=== PATIENT | female | born 1940 | race Caucasian/White ===

== ENCOUNTER 2016-08-19 19:40 | Emergency (ER) | payer MEDICARE, OTHER ==
[~2016-08-19] VITALS: Ht 154.9 cm; Wt 90.9 kg
[2016-08-19 19:45] VITALS: TEMP 98.5
[2016-08-19 21:40] VITALS: BP 120/63; PULSE 69
== END 2016-08-19 21:35 | disposition home or self-care (01) ==
LOC: COL.ER 19:40
DX: K56.41 Fecal impaction (principal)

== ENCOUNTER → 2018-06-01 | Outpatient (CLI) | payer MEDICARE, OTHER ==
[~2018-06-01] MED LIST: ABILIFY2 MG PO; ALAWAY 10 ML10 ML OP; ALLEGRA 180MG180 MG PO; ALMACONE 360 M360 ML PO; AMARYL4 MG PO; ASPIRIN 81M81 MG/TA2 PO; AVENOVA OU; BIOFREEZE 0.2%-1 GE1 TOP; BRINTELLIX20; CARDIZEM CD 24240 MG PO; COZAAR 50MG50 MG/TAB PO; COZAAR100 MG PO; DEBROX OT; DESENEX21 TP; DULCOLAX S10 MG/SUPP RC; GOOD NEIGH1200 MG/15; IMODIUM 2MG CAPS2 MG PO; IMODIUM A-D2 MG PO; IPRATROPIUM BROM3 M1 IH; K-DUR20 MEQ PO; LANTUS100 U/ML SQ; LASIX 20MG TABL20 MG PO; LIPITOR20 MG PO; MIRALAX PA17 GM/Dose PO; MYRBETR25MG PO; MYRBETR50MG PO; NAMENDA 10MG TA10 MG PO; NEURONTIN300 MG/CAP PO; NOVOLIN 70/30 710 ML SQ; NOVOLOG 100U100 U/M1 SQ; REQUIP0.25 MG PO; ROCEPHIN VIA1 G/VIAL IV; SINGULAIR 110 MG/TAB PO; TOVIAZ8 MG PO; TYLENOL 325MG325 MG PO; TYLENOL SU650 MG/SUP RC; VICTOZA6 MG/ML SQ; ZANTAC 300300 MG PO; ZOFRAN 4MG T4 MG/TAB PO
[2018-06-01 15:22] LABS: BASO # 0.1 (0.0-0.2); BASO % 0.8 % (0.0-2.0); EOS # 0.2 (0.0-0.7); EOS % 2.5 % (0-4.0); GRAN # 5.1 (1.4-6.5); GRAN % 66.7 % (42.2-75.2); HEMATOCRIT 44.7 % (37.0-47.0); LYMPH # 1.6 (1.2-3.4); LYMPH % 20.7 % (20.0-51.0); MEAN CELL VOLUME 99 fl (80.0-100.0); MEAN CORPUSCULAR HEMOGLOBIN 31 pg (27.0-31.0); MEAN CORPUSCULAR HGB CONC 31 g/dl (33.0-37.0); MEAN PLATELET VOLUME 12.4 fl (7.4-10.4); MONO # 0.7 (0.1-0.6); PLATELET COUNT 182 K/mm3 (130-400); RED BLOOD COUNT 4.52 M/mm3 (4.10-5.30); REDCELL DISTRIBUTION WIDTH-CV 12.9 % (11.5-14.5)
== END ==
LOC: ZCOL.LAB 15:05
PROVIDERS: Family Medicine
DX: A49.8 Other bacterial infections of unspecified site (principal); N39.0 Urinary tract infection, site not specified

== ENCOUNTER → 2018-10-03 | Outpatient (CLI) | payer MEDICARE, OTHER, MEDICAID ==
[2018-10-03 07:59] LABS: COLLECTION METHOD CATHETER
[2018-10-03 08:08] LABS: PH 7 (5-8); SQUAMOUS EPITHELIAL 0-2 /hpf; URINE APPEARANCE Hazy; URINE BACTERIA Rare /hpf; URINE BILIRUBIN Negative (NEGATIVE); URINE BLOOD Negative (NEGATIVE); URINE COLOR Yellow; URINE GLUCOSE Negative (NEGATIVE); URINE KETONE Negative (NEGATIVE); URINE LEUKOCYTE ESTERASE Negative (NEGATIVE); URINE NITRATE Positive (NEGATIVE); URINE PROTEIN(semi-quant) Negative (NEGATIVE); URINE RBC 0-2 /hpf; URINE UROBILINOGEN Negative (NEGATIVE)
== END ==
LOC: ZCOL.LAB 07:57
PROVIDERS: Family Medicine
DX: N39.0 Urinary tract infection, site not specified (principal)

== ENCOUNTER → 2019-06-17 | Outpatient (CLI) | payer MEDICARE, OTHER, MEDICAID | LOC: COL.VAS 12:23 | DX: R09.02 Hypoxemia (principal) ==

== ENCOUNTER → 2020-06-26 | Outpatient (CLI) | payer MEDICARE, OTHER, MEDICAID ==
[2020-06-26 20:47] LABS: COLLECTION METHOD CATHETER
[2020-06-26 21:02] LABS: BUDDING YEAST Present /hpf; MUCOUS Present /lpf; PH 5 (5-8); SQUAMOUS EPITHELIAL 0-2 /hpf; URINE APPEARANCE Hazy; URINE BACTERIA Occasional /hpf; URINE BILIRUBIN Negative (NEGATIVE); URINE BLOOD Negative (NEGATIVE); URINE COLOR Yellow; URINE GLUCOSE Negative (NEGATIVE); URINE KETONE Negative (NEGATIVE); URINE LEUKOCYTE ESTERASE 2+ (NEGATIVE); URINE NITRATE Negative (NEGATIVE); URINE PROTEIN(semi-quant) 1+ (NEGATIVE); URINE UROBILINOGEN Negative (NEGATIVE)
== END ==
LOC: ZCOL.LAB 20:39
PROVIDERS: Internal Medicine
DX: N39.0 Urinary tract infection, site not specified (principal)

== ENCOUNTER → 2020-12-11 | Outpatient (CLI) | payer MEDICARE, OTHER, MEDICAID ==
[2020-12-11 17:37] LABS: BASO # 0.1 (0.0-0.2); BASO % 0.6 % (0.0-2.0); EOS # 0.1 (0.0-0.7); EOS % 1.3 % (0-4.0); GRAN # 7.8 (1.4-6.5); HEMATOCRIT 42.9 % (37.0-47.0); HEMOGLOBIN 12.5 g/dl (12.5-16.0); LYMPH # 1.6 (1.2-3.4); MEAN CELL VOLUME 108 fl (80.0-100.0); MEAN CORPUSCULAR HEMOGLOBIN 31 pg (27.0-31.0); MEAN CORPUSCULAR HGB CONC 29 g/dl (33.0-37.0); MEAN PLATELET VOLUME 11.5 fl (7.4-10.4); MONO # 0.9 (0.1-0.6); MONO % 8.6 % (1.7-9.3); PLATELET COUNT 180 K/mm3 (130-400); RED BLOOD COUNT 3.98 M/mm3 (4.10-5.30); REDCELL DISTRIBUTION WIDTH-CV 12.7 % (11.5-14.5)
[2020-12-11 17:45] LABS: ALBUMIN 3.4 gm/dL (3.5-5.0); BILIRUBIN,TOTAL 0.3 mg/dL (0.0-1.0); CALCIUM 9.3 mg/dL (8.4-10.2); CREATININE, serum 0.74 (0.52-1.25); POTASSIUM 5.1 mmol/L (3.4-5.0); TOTAL PROTEIN 6.2 gm/dL (6.4-8.2)
== END ==
LOC: ZCOL.LAB 13:25
PROVIDERS: Internal Medicine
DX: R41.82 Altered mental status, unspecified (principal); E03.9 Hypothyroidism, unspecified

== ENCOUNTER → 2021-01-06 | Outpatient (REF) | LOC: ZCOL.LAB 10:04 | DX: E11.69 Type 2 diabetes mellitus with other specified complication (principal) ==

== ENCOUNTER → 2021-03-05 | Outpatient (CLI) | payer MEDICARE, OTHER, MEDICAID ==
[2021-03-05 18:19] LABS: BASO % 0.4 % (0.0-2.0); EOS # 0.1 (0.0-0.7); EOS % 1.6 % (0-4.0); GRAN # 5.9 (1.4-6.5); GRAN % 71.5 % (42.2-75.2); HEMOGLOBIN 10.4 g/dl (12.5-16.0); LYMPH # 1.2 (1.2-3.4); LYMPH % 14.6 % (20.0-51.0); MEAN CELL VOLUME 110 fl (80.0-100.0); MEAN CORPUSCULAR HEMOGLOBIN 31 pg (27.0-31.0); MEAN CORPUSCULAR HGB CONC 28 g/dl (33.0-37.0); MEAN PLATELET VOLUME 11.4 fl (7.4-10.4); MONO # 0.9 (0.1-0.6); MONO % 11.1 % (1.7-9.3); PLATELET COUNT 172 K/mm3 (130-400); RED BLOOD COUNT 3.34 M/mm3 (4.10-5.30); REDCELL DISTRIBUTION WIDTH-CV 12.7 % (11.5-14.5)
[2021-03-05 18:21] LABS: HEMATOCRIT 36.6 % (37.0-47.0)
[2021-03-05 19:48] LABS: ALBUMIN 3.4 gm/dL (3.4-4.8); ALKALINE PHOSPHATASE 92 U/L (0-750); ANION GAP 9 mmol/L (7-16); AST,SGOT 10 U/L (5-34); BILIRUBIN,TOTAL 0.3 mg/dL (0.2-1.2); BLOOD UREA NITROGEN 17 mg/dL (10-20); CREATININE, serum 0.74 mg/dL (0.57-1.11); GLUCOSE 154 mg/dL (70-99); POTASSIUM 4.4 mmol/L (3.5-4.5); SODIUM 141 mmol/L (136-145); TOTAL PROTEIN 6.1 gm/dL (6.2-8.1)
[2021-03-05 19:50] LABS: ALANINE AMINOTRANSFERASE < 6 U/L (0-55); CARBON DIOXIDE 48 mmol/L (23-31)
[2021-03-05 19:56] LABS: CHLORIDE 84 mmol/L (98-107)
== END ==
LOC: ZCOL.LAB 16:26
PROVIDERS: Nurse Practitioner Family
DX: I50.32 Chronic diastolic (congestive) heart failure (principal); N18.9 Chronic kidney disease, unspecified; R09.02 Hypoxemia